=== PATIENT | female | born 1935 | race Caucasian/White ===

== ENCOUNTER 2024-03-18 20:55 | Emergency (ER) | payer OTHER, SELFPAY ==
[2024-03-18 21:06] VITALS: BP 118/65; PULSE 85; RESP 16; TEMP 36.9; O2SAT 96
--- NOTE | 2024-03-18 21:09 | DI.RAD.S_ITS ---
PROCEDURE: XR CHEST 1V INDICATIONS: Shortness of breath TECHNIQUE: One view of the chest was acquired. COMPARISON: [facility], CT, CT ABDOMEN PELVIS W CON, 12/21/2023, 15:12. FINDINGS: Surgical changes and devices: Prior cervical fusion hardware . Median sternotomy wires and CABG clips. Lungs and pleura: Moderate bilateral pleural effusions with bibasilar consolidations. No pleural effusions or pneumothorax. Mediastinum: Aortic arch calcifications . Splaying of the ana m, suggestive of left atrial enlargement. Mediastinal contours otherwise appear normal. Heart size is normal. Bones and chest wall: Diffuse osteopenia. Multiple, chronic-appearing right rib fractures. Prior kyphoplasties at multiple thoracolumbar levels IMPRESSION: Moderate bilateral pleural effusions and associated parenchymal atelectasis. Consider superimposed aspiration. Dictated by: Leonardo Maldonado M.D. on 03/18/2024 at 22:26 Approved by: Leonardo Maldonado M.D. on 03/18/2024 at 22:28
--- NOTE | 2024-03-18 21:09 | EKG_ITS ---
[facility] [address] [place] [address] Test Date: 2024-03-18 Pat Name: Claudia Julian Department: [facility] Room: Gender: Female Filler Room Attendant: : 1935 Requested By: Order Number: [id number] Reading MD: Asa Castañeda Measurements Intervals [place] Rate: 115 P: 19 MO: 152 QRS: -7 QRSD: 78 T: 44 QT: 340 QTc: 470 Interpretive Statements Sinus tachycardia Nonspecific ST and T wave abnormality Electronically Signed On 03-23-2024 15:20:39 PDT by Asa Castañeda
[2024-03-18 21:17] VITALS: BP 133/76; PULSE 111; RESP 30; O2SAT 93
[2024-03-18 21:22] LABS: Add Manual Diff / Slide Review NO; Basophils Absolute Auto 100 /uL (0-100); Eosinophils Absolute Auto 300 /uL (0-450); Eosinophils Percent Auto 5.3 % (2-4); Hematocrit 43.1 % (36-46); Hemoglobin 14.5 g/dL (12.0-16.0); Lymphocytes Absolute Auto 2200 /uL (1100-4500); Lymphocytes Percent Auto 33.2 % (25-40); Mean Corpuscular HGB Conc 33.6 % (30-36); Mean Corpuscular Hemoglobin 31.5 PG (26-34); Mean Corpuscular Volume 93.8 fL (80-100); Monocytes Absolute Auto 800 /uL (0-900); Monocytes Percent Auto 11.4 % (3-14); Neutrophils Absolute Auto 3200 /uL (1500-7000); Neutrophils Percent Auto 49.1 % (50-75); Platelet Count 253 X10^3/uL (150-400); Prothrombin Time 11.7 SECONDS (9.4-12.5); Red Blood Cell Count 4.59 X10^6/uL (4.0-5.2); Red Cell Distribution Width 13.6 % (11.6-14.8); White Blood Cell Count 6.6 X10^3/uL (4.5-11.0)
[2024-03-18 21:26] LABS: Lactate (Lactic Acid) 1.4 mmol/L (0.7-2.1)
[2024-03-18 21:27] LABS: Alanine Aminotransferase 14 IU/L (<35); Albumin 4.3 g/dL (3.5-5.0); Albumin Globulin Ratio 1.1 (1.0-2.8); Alkaline Phosphatase 78 U/L (38-126); Aspartate Aminotransferase 31 IU/L (14-36); BUN Creatinine Ratio 40.9 (6-22); Bilirubin Total 0.6 mg/dL (0.2-1.3); Blood Urea Nitrogen 27 mg/dL (7-17); Calcium 9.5 mg/dL (8.4-10.2); Carbon Dioxide 30 mmol/L (22-32); Chloride 102 mmol/L (98-107); Estimated Glomerular Filt Rate > 60 mL/min (>60); Glucose 93 mg/dL (80-110); HEMOLYSIS < 15 (0-50); Sodium 140 mmol/L (137-145); Total Protein 8.3 g/dL (6.3-8.2)
[2024-03-18 21:30] VITALS: BP 117/69; PULSE 104; RESP 22; O2SAT 94
[2024-03-18 21:38] LABS: NT-proBNP (BNP-Adult 18+) 1970 pg/mL (<450); Troponin I < 0.012 ng/mL (0.01-0.034)
--- NOTE | 2024-03-18 22:06 | ED.GENADULT ---
HPI - General Adult General Chief complaint: Shortness of Breath/Dyspnea Stated complaint: Sudden onset SOB Time Seen by Provider: 03/18/24 21:30 Source: patient and EMS Mode of arrival: EMS History of Present Illness HPI narrative: Patient is an 88-year-old female. Is here for evaluation fairly sudden onset of shortness of she states that she was normal state. She up to go use restroom. She walked across the hallway to the restroom when she returned back she became short of breath and was not recovering like normal. She states she does get very short of breath even with minimal movement at baseline. She uses a cane to help her get around. She does not have any inhalers at home. She did receive a nebulizer treatment by EMS prior to arrival. By the time I evaluated the patient she stated that she was feeling much better and back to normal and not having any shortness of breath or chest pain Related Data Home Medications Medication Instructions Recorded Confirmed No Known Home Medications 01/03/24 01/03/24 Allergies Allergy/AdvReac Type Severity Reaction Status Date / Time No Known Drug Allergies Allergy Verified 01/03/24 15:07 Review of Systems Review of Systems ROS Unobtainable: All systems reviewed & are unremarkable except as noted in HPI and below Patient History Medical History DNR (do not resuscitate) Colostomy in place Kyphosis Back pain Skin cancer of face Social History Smoking Status: Former smoker Smoking Status: Former smoker Substance Use Type: does not use Exam Initial Vital Signs Initial Vital Signs: Vital Signs Temperature 98.4 F 03/18/24 21:06 Pulse Rate 85 03/18/24 21:06 Respiratory Rate 16 03/18/24 21:06 Blood Pressure 118/65 03/18/24 21:06 Pulse Oximetry 96 03/18/24 21:06 Oxygen Delivery Method Room Air 03/18/24 21:06 Const General: No ill appearing Resp Effort & Inspection: normal respiratory effort Auscultation: clear to auscultation bilaterally Cardio Rate: regular rate Rhythm: regular rhythm Neuro General: patient alert, patient awake and moves all extremities Extrem General: No edema Course Orders Ordered: ED Orders 03/18/24 20:15 Complete Blood Count AUTO DIFF Stat Comprehensive Metabolic Panel Stat Lactate (Lactic Acid) Stat NT-proBNP (BNP-Adult 18+) Stat Prothrombin Time INR Stat Troponin I Stat 03/18/24 21:09 XR chest 1V Stat EKG-12 Lead Stat Measure peak expiratory flow ONCE RT Consult Eval and Treat NOW Discontinued Medications Albuterol (Albuterol Hfa Prepack) 1 box MISC DIRECTED ONE Stop: 03/18/24 22:31 Last Admin: 03/18/24 22:36 Dose: 1 box Documented By: Vital Signs Vital signs: Vital Signs - 8 hr 03/18/24 21:06 03/18/24 21:17 03/18/24 21:17 Temperature 98.4 F Pulse Rate 85 111 H Respiratory Rate 16 30 H Blood Pressure 118/65 133/76 Pulse Oximetry 96 93 Oxygen Delivery Method Room Air 03/18/24 21:30 03/18/24 21:30 03/18/24 22:40 Temperature 98.4 F Pulse Rate 104 H 85 Respiratory Rate 22 18 Blood Pressure 117/69 135/78 Pulse Oximetry 94 98 Oxygen Delivery Method Room Air Medical Decision Making Lab Data Lab results reviewed: Yes I reviewed the patient's lab results. 03/18/24 20:15 03/18/24 20:15 Labs: Lab Results 03/18/24 Range/Units 20:15 WBC 6.6 (4.5-11.0) X10^3/uL RBC 4.59 (4.0-5.2) X10^6/uL Hgb 14.5 (12.0-16.0) g/dL Hct 43.1 (36-46) % MCV 93.8 (80-100) fL MCH 31.5 (26-34) PG MCHC 33.6 (30-36) % RDW 13.6 (11.6-14.8) % Plt Count 253 (150-400) X10^3/uL Neut % (Auto) 49.1 L (50-75) % Lymph % (Auto) 33.2 (25-40) % [place] % (Auto) 11.4 (3-14) % Eos % (Auto) 5.3 H (2-4) % Baso % (Auto) 1.0 (0-2) % Neut # (Auto) 3200 (2674-2370) /uL Lymph # (Auto) 2200 (5985-3406) /uL [place] # (Auto) 800 (0-900) /uL Eos # (Auto) 300 (0-450) /uL Baso # (Auto) 100 (0-100) /uL PT 11.7 (9.4-12.5) SECONDS INR 1.0 (0.9-1.3) Sodium 140 (137-145) mmol/L Potassium 4.0 (3.4-5.1) mmol/L Chloride 102 (98-107) mmol/L Carbon Dioxide 30 (22-32) mmol/L BUN 27 H (7-17) mg/dL Creatinine 0.66 (0.52-1.04) mg/dL Estimated GFR > 60 (>60) mL/min BUN/Creatinine Ratio 40.9 H (6-22) Glucose 93 (80-110) mg/dL Lactate 1.4 (0.7-2.1) mmol/L Calcium 9.5 (8.4-10.2) mg/dL Total Bilirubin 0.6 (0.2-1.3) mg/dL AST 31 (14-36) IU/L ALT 14 (<35) IU/L Alkaline Phosphatase 78 (38-126) U/L Troponin I < 0.012 (0.01-0.034) ng/mL NT-Pro-B Natriuret Pep 1970 H (<450) pg/mL Total Protein 8.3 H (6.3-8.2) g/dL Albumin 4.3 (3.5-5.0) g/dL Globulin 4.0 (1.7-4.1) g/dL Albumin/Globulin Ratio 1.1 (1.0-2.8) Imaging Data Chest x-ray: Radiologist's Impression: PROCEDURE: XR CHEST 1V INDICATIONS: Shortness of breath TECHNIQUE: One view of the chest was acquired. COMPARISON: [facility], CT, CT ABDOMEN PELVIS W CON, 12/21/2023, 15:12. FINDINGS: Surgical changes and devices: Prior cervical fusion hardware . Median sternotomy wires and CABG clips. Lungs and pleura: Moderate bilateral pleural effusions with bibasilar consolidations. No pleural effusions or pneumothorax. Mediastinum: Aortic arch calcifications . Splaying of the ana m, suggestive of left atrial enlargement. Mediastinal contours otherwise appear normal. Heart size is normal. Bones and chest wall: Diffuse osteopenia. Multiple, chronic-appearing right rib fractures. Prior kyphoplasties at multiple thoracolumbar levels IMPRESSION: Moderate bilateral pleural effusions and associated parenchymal atelectasis. Consider superimposed aspiration. ECG Data Attestation: I personally reviewed and interpreted this ECG as follows: Interpretation: Sinus tachycardia Ventricular rate of 115 Normal axis Normal QRS Normal QTC No ST T wave change\ MDM Narrative Medical decision making narrative: Unsure whether or not the nebulizer treatment helped her symptoms were she just had a chance to recover from being short of breath from exerting herself. Low suspicion for pneumonia. She denies chest pain. No fevers. She ambulated in the emergency department at baseline. She was not hypoxic. Will hold on any antibiotics. No indication for admission to the hospital. Will send home with a prescription for an inhaler and a spacer. She was given return precautions. She expressed understanding and agreement with plan. Discharge Plan Departure Patient Disposition: Home Clinical Impression: Shortness of breath Instructions: DI for Shortness of Breath Activity Restrictions/Additional Instructions: Continue to take all of your medications as directed. If you start to develop shortness of breath again try the albuterol inhaler with a spacer. If you continue to have shortness of breath despite the use of this then return to the emergency department. Recommend that you contact your primary doctor for follow-up. Prescriptions: No Action No Known Home Medications Referrals: Yolanda Tobar FNP-BC [Primary Care Provider] - Stand Alone Forms: Patient Portal/API
--- NOTE | 2024-03-18 22:10 | PC.NURSE ---
patient ambulated well with her cane from home. She denied SOB, dizziness, or lightheadedness. She did denied chest pain or any other symptoms. She stated her lips were dry and she was given some lip moisturizer from hospital supply
[2024-03-18] MEDS: ALBUTEROL HFA PREPACK 1 BOX MISC (22:36)
[2024-03-18 22:40] VITALS: BP 135/78; PULSE 85; RESP 18; TEMP 36.9; O2SAT 98
== END 2024-03-18 22:51 | disposition home or self-care (01) ==
PROVIDERS: Emergency Provider Emergency Medicine; PCP Nurse Practitioner Family
DX: R06.02 Shortness of breath (principal); R00.0 Tachycardia, unspecified
CPT/HCPCS: 71045; 80053; 83605; 83880; 84484; 85025; 85610; 93005; 99283; 99284